=== PATIENT | male | born 1975 | race Caucasian/White ===

== ENCOUNTER → 2023-08-01 19:00 | Outpatient (BNV) | payer OTHER, SELFPAY | PROVIDERS: PCP Family Medicine; Visit Provider Internal Medicine | DX: G47.33 Obstructive sleep apnea (adult) (pediatric) (principal) | CPT/HCPCS: 95810 ==

== ENCOUNTER → 2023-08-01 19:30 | Outpatient (REF) | payer OTHER, SELFPAY | LOC: HO.SL 19:30 | PROVIDERS: PCP Family Medicine; Visit Provider Family Medicine | DX: G47.33 Obstructive sleep apnea (adult) (pediatric) (principal) | CPT/HCPCS: 95810 ==

== ENCOUNTER → 2023-11-13 19:30 | Outpatient (REF) | payer OTHER, SELFPAY | LOC: HO.SL 19:30 | PROVIDERS: PCP Family Medicine; Visit Provider Family Medicine | DX: G47.33 Obstructive sleep apnea (adult) (pediatric) (principal); G47.00 Insomnia, unspecified | CPT/HCPCS: 95811 ==

== ENCOUNTER → 2023-11-13 19:30 | Outpatient (BNV) | payer OTHER, SELFPAY | PROVIDERS: PCP Family Medicine; Visit Provider Internal Medicine | DX: G47.33 Obstructive sleep apnea (adult) (pediatric) (principal) | CPT/HCPCS: 95811 ==

== ENCOUNTER 2024-01-24 07:58 | Outpatient (AMB) | payer OTHER, SELFPAY ==
--- NOTE | 2024-01-24 08:14 | MHC.OFFVIS ---
Vital Signs 01/24/24 08:27 Height 6 ft Weight 244 lb 2 oz BMI 33.1 BP 126/80 Blood Pressure Location Rt brachial Position Sitting Respiration 16 Pulse 128 H Pulse Source Pulse Oximeter Pulse Oximetry (%) 96 Oxygen Delivery Method Room Air Intake Visit Reasons: ENP: Seizure - Confirmed Intake Note: Pt presents for new pt evaluation for seizures. [employer] Required: No Allergies ciprofloxacin Allergy (Mild, Verified 01/24/24 08:26) Rash cyproheptadine Allergy (Mild, Verified 01/24/24 08:26) Rash ofloxacin Allergy (Mild, Verified 01/24/24 08:26) Rash Medication List - Last Reconciled 01/24/24 by Myah Corcoran MD aripiprazole 4 mg PO BEDTIME atogepant 60 mg PO DAILY baclofen 20 mg PO TID fluoxetine 10 mg PO DAILY folic acid 1 mg PO DAILY magnesium oxide 500 mg PO DAILY multivitamin 1 tab PO DAILY naloxone 0.4 mg subcut Q2M PRN nortriptyline 25 mg PO DAILY nortriptyline 75 mg PO DAILY omeprazole 20 mg PO DAILY onabotulinumtoxinA (Botox) IM ondansetron 4 mg PO Q8H riboflavin (vitamin B2) 100 mg PO DAILY thiamine HCl (vitamin B1) 100 mg PO DAILY HPI Comments Details: 48y/o [place] evaluation of seizure like episodes. Jun 29 2023 - he was in a store with a friend , he was walking towards her , he had an episode where he could not move , eyes rolled up ( calls it locked up, could not move) but he did not fall . His friend made him sit down. when he woke up he was sitting down in the floor , no abnormal movements .He was taken to [facility].The whole episode until he went to ER was 40 min but unclear how long he lost awareness. He was evaluated for TIA and [place] He was given a loading dose of Keppra but neurologist did not think it was seizures. He had a similar episode January 2023 - [place] and [place] .He denies any tongue biting or urinary incontinence.But he was unable to answer questions for 2 hrs.He had 2 beers and marijuana gummies prior to the episode. These episodes are usually preceded by nausea dizziness Sep 2022 he lost 5 min of time . He has h/o concussion and chronic migraines- botox helps. He still has daily headaches . [facility] Medical History (Updated 01/24/24 @ 09:00 by Myah Corcoran MD) Chronic migraine with aura Syncope and collapse Alcohol dependence Obstructive sleep apnea GERD (gastroesophageal reflux disease) PTSD (post-traumatic stress disorder) Depression Restless legs syndrome (RLS) TIA (transient ischemic attack) Tinnitus Hearing loss Surgical History (Updated 01/24/24 @ 08:31 by Marleny Galicia CMA) Hx of cholecystectomy Family History (Updated 01/24/24 @ 08:32 by Marleny Galicia CMA) Father Heart attack Stroke Mother Diabetes Sister Migraine Social History (Updated 01/24/24 @ 08:33 by Marleny Galicia CMA) Household Members: None Housing: Apartment Alcohol intake: current Comment: 1-2 drinks per month Tobacco use type: Smokeless Tobacco Years Smoked: 1 year- vape Substance Use Type: Marijuana Substance Use Frequency: Daily Physical Exam Vital Signs: Last Vital Signs Pulse 128 H 01/24/24 08:27 Resp 16 01/24/24 08:27 BP 126/80 01/24/24 08:27 Pulse Ox 96 01/24/24 08:27 Oxygen Delivery Method Room Air 01/24/24 08:27 BMI result Body Mass Index 33.1 Const General: cooperative, comfortable and no acute distress Nutritional Appearance: average body habitus Orientation/consciousness: patient oriented x3 Eyes Pupils: Equal, round and reactive pupils present Neuro General: patient oriented x3, tone normal, moves all extremities and no focal motor deficits Cranial nerves: Yes Facial sensation intact/muscles of mastication intact, Yes Equal, round and reactive pupils present, Yes Bilaterally intact EOM present, Yes Nystagmus not present, Yes Normal facial strength present, Yes Midline tongue present, Yes Symmetric palate elevation present and Yes Ability to bilaterally elevate shoulders present Cognition (Neuro): normal cognition Gait exam (Neuro): Antalgic gait present Motor exam (neuro): 5/5 motor strength present throughout and Normal motor muscle tone present throughout Deep tendon reflexes (DTR's): Right triceps reflex intensity grade: 1+, Left triceps reflex intensity grade: 1+, Rt Biceps (C5, C6): 1+, Left biceps reflex intensity grade: 1+, Right brachioradialis reflex intensity grade: 1+, Left brachioradialis reflex intensity grade: 1+, Right patellar reflex intensity grade: 1+ and Left patellar reflex intensity grade: 1+ Coordination: [id number] test normal Assessment & Plan Assessment & Plan (1) Syncope and collapse: Comment: ? seizure ? complex migraines Code(s): R55 - Syncope and collapse Category: Medical (2) Obstructive sleep apnea: Comment: waiting for CPAP . AHI 13 O2 derrell 81 % ,did well on CPAP 8 Code(s): G47.33 - Obstructive sleep apnea (adult) (pediatric) Category: Medical (3) Chronic migraine with aura: Comment: sees at [place] and treated with atogepant and botox Code(s): G43.E09 - Chronic migraine with aura, not intractable, without status migrainosus Category: Medical Plan The episodes are atypical for a seizure. I will review his records from [facility]. EEG - 24-48 hrs at [facility] Start CPAP at 8 cm of water F/u with psychiatry ? fugue state He did not drive for 6 mths after the episode and recently started driving . He usually gets nausea dizziness prior to the episode . He is driving with supervision only now. Orders: Orders EEG 72 Hours Today R55 - Syncope and collapse Coding Level of Care Code New Pt Level 4 (78958) Complex EM visit Add On G2211 Diagnoses Syncope and collapse R55 Obstructive sleep apnea G47.33 Chronic migraine with aura G43.E09
[2024-01-24 08:27] VITALS: BP 126/80; PULSE 128; RESP 16; O2SAT 96; BMI 33.1
== END 2024-01-24 09:07 | disposition home or self-care (01) ==
PROVIDERS: PCP Family Medicine; Visit Provider Psychiatry & Neurology Neurology
DX: R55 Syncope and collapse (principal); G47.33 Obstructive sleep apnea (adult) (pediatric); G43.E09 Chronic migraine with aura, not intractable, without status migrainosus
CPT/HCPCS: 99204; G2211

== ENCOUNTER → 2024-01-24 07:58 | Outpatient (BNVA) | payer OTHER, SELFPAY | PROVIDERS: PCP Family Medicine; Visit Provider Psychiatry & Neurology Neurology | DX: G43.E09 Chronic migraine with aura, not intractable, without status migrainosus (principal); R55 Syncope and collapse; G47.33 Obstructive sleep apnea (adult) (pediatric) | CPT/HCPCS: 99202 ==